=== PATIENT | female | born 1985 | race Hispanic/Latino ===

== ENCOUNTER 2016-03-10 12:36 | Emergency (ER) | payer MEDICAID ==
[2016-03-10] MEDS ORDERED: SODIUM CHLORIDE 0.9% 1,000 ML ONE (15:44)
[2016-03-10] MEDS ORDERED: METOCLOPRAMIDE 10 MG/2 ML VIAL ONE (15:45)
[2016-03-10] MEDS ORDERED: DIPHENHYDRAMINE 50 MG/ML VIAL ONE (15:45)
[2016-03-10] MEDS ORDERED: KETOROLAC 30 MG/ML VIAL ONE (17:08)
== END 2016-03-10 18:09 | disposition home or self-care (01) ==
LOC: ER 12:36
CPT/HCPCS: 36415; 70450; 71020; 80053; 81001; 84703; 85025; 87804; 96361; 96374; 96375